=== PATIENT | male | born 2000 | race Caucasian/White ===

== ENCOUNTER 2022-10-13 14:45 | Emergency (ER) | payer BC ==
--- NOTE | 2022-10-13 15:25 | ED ---
General Adult HPI - General Source: patient, RN notes reviewed Mode of arrival: ambulatory Limitations: no limitations <Yohan Juarez - Last Filed: 10/13/22 15:24> - General Source: patient, RN notes reviewed Mode of arrival: ambulatory Limitations: no limitations <Gissel Hines - Last Filed: 10/17/22 18:09> - General Stated complaint: Mental health eval Time Seen by Provider: 10/13/22 15:25 - History of Present Illness Initial comments: 22-year-old male presents emergency from with parents for evaluation of depression, suicidal ideation. Patient was sat therapists office today and had some discussion about patient's increasing suicidal ideation. The recommended patient come emergency 5 for further evaluation. Patient used to be on Prozac has not been taking for last 6 months he does admit that he increased that he started using marijuana more frequently. Patient states that he has had thoughts of harm himself but has not self-harm. Denies any recent alcohol use. Patient offers no other associated complaints. Denies homicidal ideation (Yohan Juarez) This is a pleasant 22-year-old male who presents to the emergency department accompanied by his father for mental health evaluation. Patient states he was seen by his psychologist today for a routine visit while he was home from college and she encouraged him to be seen in the ER after discussing suicidal thoughts. Patient states he has not been taking his medications since going to school and has been using marijuana daily to self medicate. States he has thoughts of hurting himself but has no active plan or intent to cause injury. Denies any homicidal ideations. No medical complaints at this time. Patient is cooperative with plan of care. (Gissel Hines) - Related Data Home Medications Medication Instructions Recorded Confirmed Amoxicillin 875 mg PO Q12HR 10/13/22 10/13/22 Allergies Allergy/AdvReac Type Severity Reaction Status Date / Time No Known Allergies Allergy Verified 10/13/22 19:48 Review of Systems ROS Other: All systems not noted in ROS Statement are negative. <Yohan Juarez - Last Filed: 10/13/22 15:24> ROS Other: All systems not noted in ROS Statement are negative. <Gissel Hines - Last Filed: 10/17/22 18:09> ROS Statement: Those systems with pertinent positive or pertinent negative responses have been documented in the HPI. General Exam Limitations: no limitations General appearance: alert, in no apparent distress Respiratory exam: Present: normal lung sounds bilaterally. Absent: respiratory distress, wheezes, rales, rhonchi, stridor Cardiovascular Exam: Present: regular rate, normal rhythm, normal heart sounds. Absent: systolic murmur, diastolic murmur, rubs, gallop, clicks GI/Abdominal exam: Present: soft, normal bowel sounds. Absent: distended, tenderness, guarding, rebound, rigid Extremities exam: Present: normal inspection, full ROM, normal capillary refill. Absent: tenderness, pedal edema, joint swelling, calf tenderness Neurological exam: Present: alert, oriented X3, CN II-XII intact, normal gait Psychiatric exam: Present: normal affect, normal mood, other (Patient is pleasant, interacts and answer questions appropriately.) Skin exam: Present: warm, dry, intact, normal color. Absent: rash <Gissel Hines - Last Filed: 10/17/22 18:09> Course <Gissel Hines - Last Filed: 10/17/22 18:09> Vital Signs 10/13/22 15:46 Temperature 97.6 F Pulse Rate 77 Respiratory 20 Rate Blood Pressure 136/88 O2 Sat by Pulse 99 Oximetry - Reevaluation(s) Reevaluation #1: 10/13/22 21:29 Spoke with EPS. Patient will be discharged home and encouraged to follow up with his psychologist. Safety plan. (Gissel Hines) Medical Decision Making <Gissel Hines - Last Filed: 10/17/22 18:09> - Medical Decision Making This is a pleasant 22-year-old male who presents to the emergency department accompanied by his father for mental health evaluation. Upon exam, patient is well-appearing and in no acute distress. He interacts and engages in an appropriate manner. No suicidal or homicidal ideations. Patient was evaluated by EPS and is cleared for discharge as he was willing to safety contract. Patient will be discharged home accompanied by his father. Implored to follow up with counselor for mental health support. Return parameters discussed in detail. Patient verbalizes understanding and agrees with this plan. Attending: Alejandra. Was pt. sent in by a medical professional or institution? @ -Counselor Did you speak to anyone other than the patient for history? @ -Father Did you review nursing and triage notes? @ -Yes, agree Were old charts reviewed? @ -No Differential Diagnosis? @ -Anxiety, depression, mood disorder, this is not meant to be an exhaustive list EKG interpreted by me (3pts min.)? @ -Not applicable X-rays interpreted by me (1pt min.)? @ -Not applicable CT interpreted by me (1pt min.)? @ -Not applicable U/S interpreted by me (1pt. min.)? @ -Not applicable What testing was considered but not performed? (CT, X-rays, U/S, labs)? Why? @ -None What meds were considered but not given? Why? @ -None Did you discuss the management of the patient with other professionals? @ -Discussed this patient's care with EPS. Did you reconcile home meds? @ -No Was smoking cessation discussed for >3mins.? @ -Discussed marijuana use at length as patient uses it in the form of smoking and edible. Was critical care preformed (if so, how long)? @ -No Were there social determinants of health that impacted care today? How? (Homelessness, low income, unemployed, alcoholism, drug addiction, transportation, low edu. Level, literacy, decrease access to med. care, care home, rehab)? @ -No Was there de-escalation of care discussed even if they declined? (Discuss DNR or withdrawal of care, Hospice)? @ -No What co-morbidities impacted this encounter? (DM, HTN, Smoking, COPD, CAD, Cancer, CVA, Hep., AIDS, mental health diagnosis, sleep apnea, morbid obesity)? @ -Anxiety/depression Was patient admitted / discharged? @ -Discharged Undiagnosed new problem with uncertain prognosis? @ -None Drug Therapy requiring intensive monitoring for toxicity (Heparin, Nitro, Insulin, Cardizem)? @ -None Were any procedures done? @ -None Diagnosis/symptom? @ -Depression Acute, or Chronic, or Acute on Chronic? @ -Chronic Uncomplicated (without systemic symptoms) or Complicated (systemic symptoms)? @ -Uncomplicated Side effects of treatment? @ -None Exacerbation, Progression, or Severe Exacerbation] @ -No Poses a threat to life or bodily function? @ -No (Gissel Hines) - Lab Data Lab Results 10/13/22 Range/Units 19:59 Urine Opiates Screen Not Detected (NotDetected) Ur Oxycodone Screen Not Detected (NotDetected) Urine Methadone Screen Not Detected (NotDetected) Ur Propoxyphene Screen Not Detected (NotDetected) Ur Barbiturates Screen Not Detected (NotDetected) U Tricyclic Antidepress Not Detected (NotDetected) Ur Phencyclidine Scrn Not Detected (NotDetected) Ur Amphetamines Screen Not Detected (NotDetected) U Methamphetamines Scrn Not Detected (NotDetected) U Benzodiazepines Scrn Not Detected (NotDetected) Urine Cocaine Screen Not Detected (NotDetected) U Marijuana (THC) Screen Detected H (NotDetected) Disposition <Yohan Juarez - Last Filed: 10/13/22 15:24> Is patient prescribed a controlled substance at d/c from ED?: No Time of Disposition: 21:33 <Gissel Hines - Last Filed: 10/17/22 18:09> Clinical Impression: Depression Disposition: HOME SELF-CARE Condition: Stable Instructions (If sedation given, give patient instructions): Depression (ED) Additional Instructions: Follow up with psychologist for medication discussion. Seek counseling options for while at school. Your safety is of utmost importance. If you have any thoughts or intent to cause harm to yourself, go to the nearest emergency department or call 911 Return to the emergency department with any new, worsening, or concerning symptoms. Referrals: Merlin Luciano MD [Primary Care Provider] - 1-2 days
[2022-10-13 15:49] VITALS: BP 136/88; PULSE 77; RESP 20; TEMP 97.6
[2022-10-13 20:16] LABS: Amphetamine Screen,Urine Not Detected (NotDetected); Barbiturate Screen,Urine Not Detected (NotDetected); Benzodiazepines Screen,Urine Not Detected (NotDetected); Cocaine Screen,Urine Not Detected (NotDetected); Methadone Screen, Urine Not Detected (NotDetected); Opiate Screen,Urine Not Detected (NotDetected); Oxycodone Screen, Urine Not Detected (NotDetected); Phencyclidine Screen,Urine Not Detected (NotDetected); Tricyclic Antidepressant,Urine Not Detected (NotDetected); Urn Cannabinoid Scrn Detected (NotDetected)
== END 2022-10-13 21:37 | disposition home or self-care (01) ==
LOC: EC 14:45
DX: F32.A Depression, unspecified (principal)
CPT/HCPCS: 80306; 82075; 99284